=== PATIENT | female | born 1990 | race Caucasian/White ===

== ENCOUNTER 2023-06-19 14:30 | Inpatient (IN) | payer BC ==
--- NOTE | 2023-06-19 15:05 | ED ---
General Adult HPI - General Source: patient, RN notes reviewed Mode of arrival: ambulatory Limitations: no limitations <Joe Oliveira - Last Filed: 06/19/23 15:03> <Ozzy Carrasco - Last Filed: 06/19/23 17:56> - General Stated complaint: Mental health Time Seen by Provider: 06/19/23 14:45 - History of Present Illness Initial comments: 32-year-old female presents emergency department with chief complaints of needing psychiatric evaluation. Patient is concerned that she may have schizophrenia. She has a family history of schizophrenia and she states she has been hearing voices in her head that are worsening. Patient states this is making her feel very anxious, uneasy is unsure what to do. (Joe Oliveira) This 32-year-old female presents with complaint of hearing voices. She states that there is a degree of chronicity over years in this regard but it is much worse over the past couple of months. She states that it is much more severe over the last week and she states that she could not work anymore for the past week. She has chronic depression but this is unchanged recently. She denies any suicidal ideations. She complains of severe anxiety as well. She denies any history of schizophrenia or bipolar disorder. She does have a family history of schizophrenia. She also states that she takes BuSpar for her anxiety. She takes Adderall for her ADHD. She denies any current medical complaints. She denies any drugs or alcohol. She relates that she is here to seek help for her mental health condition. No other complaints or modifying factors. (Ozzy Carrasco) - Related Data Allergies Allergy/AdvReac Type Severity Reaction Status Date / Time No Known Allergies Allergy Verified 06/19/23 15:06 Review of Systems ROS Other: All systems not noted in ROS Statement are negative. <Joe Oliveira - Last Filed: 06/19/23 15:03> ROS Other: All systems not noted in ROS Statement are negative. <Ozzy Carrasco - Last Filed: 06/19/23 17:56> ROS Statement: Those systems with pertinent positive or pertinent negative responses have been documented in the HPI. General Exam <Joe Oliveira - Last Filed: 06/19/23 15:03> <Ozzy Carrasco - Last Filed: 02/15/24 17:56> - General Exam Comments Initial Comments: Visual Physical Exam Vital signs reviewed General: Well-appearing, nontoxic, no acute distress. Head: Normocephalic, atraumatic Eyes: PERRLA, EOMI ENT: Airway patent Chest: Nonlabored breathing Skin: No visual rash, normal skin tone Neuro: Alert and oriented 3 Musculoskeletal: No gross abnormalities (Joe Oliveira) GENERAL: The patient is well nourished and well hydrated. VITAL SIGNS: Heart rate, blood pressure, respiratory rate reviewed as recorded in nurse's notes. EYES: Pupils are round and reactive. Extraocular movements are intact. No conjunctival / lid redness or swelling. ENT: No external evidence of injury, swelling, or ecchymosis. Airway is patent. Throat is clear. NECK: Nontender. No swelling or evidence of injury. No subcutaneous emphysema. Trachea is midline. No thyroid mass. HEART: Regular rate and rhythm. Good peripheral pulses. LUNGS/CHEST: Breath sounds clear and equal bilaterally. No rales, rhonchi, or wheezes. No ecchymosis, subcutaneous emphysema, or tenderness. ABDOMEN: Abdomen soft without tenderness. No palpable masses or organomegaly. No peritoneal signs. No abdominal wall swelling or ecchymosis. EXTREMITIES: No extremity tenderness. Normal muscle tone and function. No thoracolumbar tenderness. NEUROLOGIC: Sensation is grossly intact. Cranial nerve exam reveals face is symmetrical, tongue is midline, speech is clear. SKIN: No abrasions or ecchymosis is noted. No induration or masses noted. PSYCHIATRIC: Alert and oriented. Appropriate behavior, no acute psychiatric distress. (Ozzy Carrasco) Course Vital Signs 06/19/23 15:00 Temperature 98 F Pulse Rate 74 Respiratory 18 Rate Blood Pressure 121/54 O2 Sat by Pulse 100 Oximetry Medical Decision Making <Joe Oliveira - Last Filed: 06/19/23 15:03> <Ozzy Carrasco - Last Filed: 06/19/23 17:56> - Medical Decision Making I completed the quick note portion of this chart signed Joe Oliveira PA-C (Joe Oliveira) The patient was seen and examined. All diagnostics were reviewed. The breath alcohol test is negative. The marijuana and amphetamine screens are positive on urine drug screen. Urine is negative. She is having auditory hallucinations. Mental health consultation was obtained and they feel as though patient would require inpatient treatment. They're examining as to whether or not her insurance will allow her to stay at our facility. If so they will admit her here. If not, they will transfer her to a different facility. Patient is in no distress on recheck. Was pt. sent in by a medical professional or institution (NEIL Alberto, RESEARCH SCIENTIST, urgent care, hospital, or senior living...) When possible be specific @ -No Did you speak to anyone other than the patient for history (EMS, parent, family, police, friend...)? What history was obtained from this source @ -No Did you review nursing and triage notes (agree or disagree)? Why? @ -I reviewed and agree with nursing and triage notes Were old charts reviewed (outside hosp., previous admission, EMS record, old EKG, old radiological studies, urgent care reports/EKG's, senior living records)? Report findings @ -No old charts were reviewed Differential Diagnosis (chest pain, altered mental status, abdominal pain women, abdominal pain men, vaginal bleeding, weakness, fever, dyspnea, syncope, headache, dizziness, GI bleed, back pain, seizure, CVA, palpatations, mental health, musculoskeletal)? @ -Psychosis, auditory hallucinations, schizophrenia, bipolar disorder, anxiety, ADHD, depression. EKG interpreted by me (3pts min.). @ -Not done X-rays interpreted by me (1pt min.). @ -None done CT interpreted by me (1pt min.). @ -None done U/S interpreted by me (1pt. min.). @ -None done What testing was considered but not performed or refused? (CT, X-rays, U/S, labs)? Why? @ -None What meds were considered but not given or refused? Why? @ -None Did you discuss the management of the patient with other professionals (professionals i.e. NEIL Alberto, RESEARCH SCIENTIST, lab, RT, psych nurse, mental health social worker, laborer cook house, teacher, chief development officer, correctional case manager)? Give summary @ -Case is discussed with the mental health professional. Was smoking cessation discussed for >3mins.? @ -No Was critical care preformed (if so, how long)? @ -No Were there social determinants of health that impacted care today? How? (Homelessness, low income, unemployed, alcoholism, drug addiction, transportation, low edu. Level, literacy, decrease access to med. care, retirement, rehab)? @ -The patient's psychiatric problems or social determinants that impacted healthcare. Was there de-escalation of care discussed even if they declined (Discuss DNR or withdrawal of care, Hospice)? DNR status @ -No What co-morbidities impacted this encounter? (DM, HTN, Smoking, COPD, CAD, Cancer, CVA, ARF, Chemo, Hep., AIDS, mental health diagnosis, sleep apnea, morbid obesity)? @ -ADHD, anxiety, depression. Was patient admitted / discharged? Hospital course, mention meds given and route, prescriptions, significant lab abnormalities, going to OR and other pertinent info. @ -Patient will be admitted to psychiatric unit or potentially transfer psychiatric unit pending insurance approval. Undiagnosed new problem with uncertain prognosis? @ -No Drug Therapy requiring intensive monitoring for toxicity (Heparin, Nitro, Insulin, Cardizem)? @ -No Were any procedures done? @ -No Diagnosis/symptom? @ -Auditory hallucinations, psychosis, marijuana abuse, anxiety, depression. Acute, or Chronic, or Acute on Chronic? @ -Acute on chronic Uncomplicated (without systemic symptoms) or Complicated (systemic symptoms)? @ -Uncomplicated Side effects of treatment? @ -No Exacerbation, Progression, or Severe Exacerbation? @ -No Poses a threat to life or bodily function? How? (Chest pain, [place], [place], pneumonia, PE, COPD, DKA, ARF, appy, cholecystitis, CVA, Diverticulitis, Homicidal, Suicidal, threat to staff... and all critical care pts) @ -No (Ozzy Carrasco) - Lab Data Lab Results 06/19/23 06/19/23 Range/Units 15:52 15:52 Urine HCG, Qual Not Detected (Not Detectd) Urine Opiates Screen Not Detected (NotDetected) Ur Oxycodone Screen Not Detected (NotDetected) Urine Methadone Screen Not Detected (NotDetected) Ur Barbiturates Screen Not Detected (NotDetected) U Tricyclic Antidepress Not Detected (NotDetected) Ur Phencyclidine Scrn Not Detected (NotDetected) Ur Amphetamines Screen Detected H (NotDetected) U Methamphetamines Scrn Not Detected (NotDetected) U Benzodiazepines Scrn Not Detected (NotDetected) Urine Cocaine Screen Not Detected (NotDetected) U Marijuana (THC) Screen Detected H (NotDetected) Disposition <Joe Oliveira - Last Filed: 06/19/23 15:03> Is patient prescribed a controlled substance at d/c from ED?: No Time of Disposition: 17:56 Decision Date: 06/19/23 Decision Time: 17:54 <Ozzy Carrasco - Last Filed: 06/19/23 17:56> Clinical Impression: Depression, Auditory hallucination, Anxiety, ADHD Disposition: ADMITTED IP TO THIS HOSP Condition: Good Referrals: None,Stated [Primary Care Provider] - 1-2 days
[2023-06-19] MEDS: ASPIRIN 81 MG PO STA (16:17)
[2023-06-19 16:43] LABS: Amphetamine Screen,Urine Detected (NotDetected); Barbiturate Screen,Urine Not Detected (NotDetected); Benzodiazepines Screen,Urine Not Detected (NotDetected); Cocaine Screen,Urine Not Detected (NotDetected); Methadone Screen, Urine Not Detected (NotDetected); Opiate Screen,Urine Not Detected (NotDetected); Oxycodone Screen, Urine Not Detected (NotDetected); Phencyclidine Screen,Urine Not Detected (NotDetected); Tricyclic Antidepressant,Urine Not Detected (NotDetected); Urn Cannabinoid Scrn Detected (NotDetected)
[2023-06-19] MEDS ORDERED: MAG HYDROX/AL HYDROX/SIMETH 30 ML CUP PO PRN (19:28)
[2023-06-19] MEDS ORDERED: MAGNESIUM HYDROXIDE 2,400 MG/30 ML CUP PO PRN (19:28)
[2023-06-19] MEDS ORDERED: LORazepam 2 MG/ML INJ IM PRN (19:34)
[2023-06-19] MEDS ORDERED: haloperidoL 5 MG TAB PO PRN (19:34)
[2023-06-19] MEDS ORDERED: HALOPERIDOL LACTATE 5 MG/ML 1 ML VIAL IM PRN (19:34)
[2023-06-19] MEDS ORDERED: LORazepam 1 MG TAB PO PRN (19:34)
[2023-06-19] MEDS: busPIRone HCl 10 MG TAB PO SCH (22:39)
[2023-06-19] MEDS: METOPROLOL TARTRATE 50 MG TAB PO SCH (22:40)
[2023-06-19] MEDS: CYCLOBENZAPRINE 10 MG TAB PO PRN (22:40)
[2023-06-20 01:22] VITALS: RESP 16; TEMP 97.9
--- NOTE | 2023-06-20 02:40 | P.CONS ---
History of Present Illness - Reason for Consult Consult date: 06/20/23 - History of Present Illness The patient is a 32-year-old female who presented to the emergency room requesting a psychiatric evaluation. She had reported auditory hallucinations. She was admitted to the mental health unit where she was seen and evaluated accompanied by a mental health unit RN. She reports a longstanding history of auditory hallucinations but reports that it had recently worsened over the past few months. She also reports chronic neck pain for the past 1 to 2 years for which she has been taking Motrin as needed. Denies any additional complaints. Denied experiencing chest discomfort, shortness of breath, fever, chills, cough, nausea, vomiting, abdominal pain, diarrhea. Denied tobacco abuse. Does admit to recreational marijuana use. Denies alcohol use. Review of systems: Pertinent positives and negatives as discussed in HPI, a complete review of systems was performed and all other systems are negative. Physical examination: General: non toxic, no distress, appears at stated age, normal weight Derm: no unusual rashes/lesions, no unusual ecchymoses, warm, dry Head: atraumatic, normocephalic, symmetric Eyes: EOMI, no lid lag, anicteric sclera ENT: Nose and ears atraumatic, no thrush, no pharyngeal erythema Neck: trachea midline, supple Mouth: no lip lesion, mucus membranes moist Cardiovascular: S1S2 reg, no murmur, no edema Lungs: CTA bilateral, no rhonchi, no rales , no accessory muscle use Abdominal: soft, nontender to palpation, no guarding Ext: no gross muscle atrophy, no contractures, Neuro: No gross focal neuro deficits noted Psych: Alert, oriented, appropriate affect Assessment: Marijuana abuse Hallucinations Imaging: None performed Data Review: Laboratory evaluation remarkable for urine toxicology positive for marijuana and amphetamines (patient takes Adderall) Plan: Advised patient on importance of cessation from marijuana use Also advised patient against chronic use of NSAIDs and advised the patient to see outpatient PT Defer management of hallucinations and possible psychosis to primary psychiatry service Thank you for allowing us to participate in the care of this patient. We will follow peripherally. Do not hesitate to contact us with questions. Someone can be reached from the [facility] hospitalist group at all hours of the day at [phone]. Past Medical History Past Medical History: Hypertension, Osteoarthritis (OA) Additional Past Medical History / Comment(s): OA in neck. Hypoglycemia History of Any Multi-Drug Resistant Organisms: None Reported Past Surgical History: No Surgical Hx Reported Smoking Status: Vaper - Past Family History Brother(s) Additional Family Medical History / Comment(s): Schizophrenia Medications and Allergies Home Medications Medication Instructions Recorded Confirmed Type Cyclobenzaprine [Flexeril] 10 mg PO HS 06/19/23 06/19/23 History Dextroamphetamine/Amphetamine 15 mg PO HS@1800 06/19/23 06/19/23 History [Adderall] Dextroamphetamine/Amphetamine 30 mg PO DAILY 06/19/23 06/19/23 History [Adderall] Ferrous Sulfate [Feosol] 325 mg PO DAILY 06/19/23 06/19/23 History Fish Oil(Unknown Dose) 1 cap PO DAILY 06/19/23 06/19/23 History Magneium(Unknown Dose) 1 tab PO DAILY 06/19/23 06/19/23 History Metoprolol Tartrate [Lopressor] 50 mg PO BID@0900,1800 06/19/23 06/19/23 History Multivitamin/Iron/Folic Acid 1 tab PO DAILY 06/19/23 06/19/23 History [Centrum Women Tablet] busPIRone HCL [Buspar] 15 mg PO HS@1800 06/19/23 06/19/23 History busPIRone HCL [Buspar] 22.5 mg PO DAILY 06/19/23 06/19/23 History Allergies Allergy/AdvReac Type Severity Reaction Status Date / Time shellfish derived Allergy Intermediate Rash/Hives Verified 06/20/23 00:56 strawberry Allergy Intermediate Rash/Hives Verified 06/20/23 00:56 Physical Exam Vitals: Vital Signs Temp Pulse Pulse Resp BP BP Pulse Ox 06/19/23 20:30 97.9 F 60 16 134/71 100 06/19/23 15:00 98 F 74 18 121/54 100 Intake and Output 06/19/23 06/19/23 06/20/23 14:59 22:59 06:59 Other: Weight 57 kg Results Labs: Abnormal Lab Results - Last 24 Hours (Table) 06/19/23 Range/Units 15:52 Ur Amphetamines Screen Detected H (NotDetected) U Marijuana (THC) Screen Detected H (NotDetected)
[2023-06-20] MEDS: NICOTINE 14MG/24HR PATCH TRANSDERM SCH (08:37)
[2023-06-20] MEDS: MULTIVITAMINS, THERA 1 EACH TAB PO SCH (08:48)
[2023-06-20] MEDS: FERROUS SULFATE 325 MG TAB PO SCH (08:48)
[2023-06-20] MEDS: ACETAMINOPHEN TAB 325 MG TAB PO PRN (08:50)
[2023-06-20] MEDS ORDERED: METOPROLOL TARTRATE 50 MG TAB PO SCH (09:00)
[2023-06-20] MEDS ORDERED: busPIRone HCl 10 MG TAB PO SCH (09:00)
--- NOTE | 2023-06-20 12:58 | P.HP ---
Psychiatric H&P - . H&P Date: 06/20/23 History & Physical: Allergies Allergy/AdvReac Type Severity Reaction Status Date / Time shellfish derived Allergy Intermediate Rash/Hives Verified 06/20/23 00:56 strawberry Allergy Intermediate Rash/Hives Verified 06/20/23 00:56 Vital Signs Temp 97.9 F 06/19/23 20:30 Pulse 60 06/19/23 20:30 Resp 16 06/19/23 20:30 BP 134/71 06/19/23 20:30 Pulse Ox 100 06/19/23 20:30 FiO2 Intake & Output 06/19/23 06/20/23 06/20/23 18:59 06:59 18:59 Weight 56.699 kg 57 kg Laboratory Last Values Urine HCG, Qual Not Detected (Not Detectd) 06/19/23 15:52 Urine Opiates Screen Not Detected (NotDetected) 06/19/23 15:52 Ur Oxycodone Screen Not Detected (NotDetected) 06/19/23 15:52 Urine Methadone Screen Not Detected (NotDetected) 06/19/23 15:52 Ur Barbiturates Screen Not Detected (NotDetected) 06/19/23 15:52 U Tricyclic Antidepress Not Detected (NotDetected) 06/19/23 15:52 Ur Phencyclidine Scrn Not Detected (NotDetected) 06/19/23 15:52 Ur Amphetamines Screen Detected (NotDetected) H 06/19/23 15:52 U Methamphetamines Scrn Not Detected (NotDetected) 06/19/23 15:52 U Benzodiazepines Scrn Not Detected (NotDetected) 06/19/23 15:52 Urine Cocaine Screen Not Detected (NotDetected) 06/19/23 15:52 U Marijuana (THC) Screen Detected (NotDetected) H 06/19/23 15:52 SARS-CoV-2 (PCR) Not Detected (Not Detectd) 06/19/23 17:42 06/20/23 08:48 IDENTIFYING DATA: Patient is a 32 year old female. , has one daughter. Lives in a house with her and daughter. Works as a delivery director. HPI: Patient presented to the hospital on 06/19. As per EPS note, "Upon assessment pt is slightly anxious but cooperative. Pt has good hygiene and speaks appropriately. Pt has not had any inpatient or outpatient treatment. Pt brought self to ER d/t increased hallucinations. Pt states it began about 3 months ago and she was hearing voices that were muffled. She states in the last 3 weeks they have intensified and she can hear people talking clearly. She states she hears family, friends, her daughters voice. Hallucinations are not command in nature. She states they are just talking about day to day. Occasionally she states they talk about her. She is also paranoid, she believes that her is having an affair per some of the voices. She states that she believes people are watching her and that their are cameras in her house. She admits to VH of shadows going by occasionally. She denies having any supports and feels like people will label her crazy if she talks about it to anyone. She tries to speak with her but shuts her down and is not supportive per pt. Pt denies current SI, but states that she had SI a few days ago. No plan or intent. She states, "I have my daughter and I would never abandon her, that is selfish". Pt came to ER because her hallucinations are starting to affect her work life, she feels a decrease in motivation and willingness to work. She has a decrease in sleep in the last 3 months, from 8 hours before to now only about 3 on average. A decrease in appetite, but feels it's related to constantly worki ng. Pt is caring for her ADLs. Pt states, "I know I need help". Pt is willing to sign herself in for treatment." Upon todays assessment, states the voices were subtle at first, and if she focused, she could understand what they were saying. States that they are generally "a conversation between two or more people. Just hearing negative stuff about her, that she is "ugly, dumb, we can't be her frie nd" States that it might be paranormal things, or schizophrenia, (with a laugh). She is currently not having thoughts of hurting herself or anyone else. States that she does have mood swings, and is quick to get angry. Patient states that she does not get much sleep, and she does not have "normal" eating habits. Patient denies any suicidal or homicidal ideations intent or plan. At this time patient denies any auditory or visual hallucinations. Patient denies any flight of ideas racing thoughts and increased in goal directed behavior. Endorses mild paranoia. Patient admits to using marijuana. Uses a nicotine vape, and rarely drinks. Patients UDS positive for amphetamines and marijuana. PAST PSYCHIATRIC HISTORY: Patient states that she has never been admitted to a psych facility. No outpatient follow up, No psych medications. Admits to 1 suicide attempt by hanging at age 23. PMH:As per ER note ALLERGIES: as per EMR CHEMICAL DEPENDENCY HISTORY: as per HPI FAMILY PSYCHIATRIC/SUBSTANCE USE HISTORY: brother schizophrenic, mother bipolar/depressed SOCIAL HISTORY: Patient was born and raised in [place]. Moved to [place] in 2000. High school graduate, 1 child, , lives in a house with her and child. Works as a delivery director. Denies legal troubles. MENTAL STATUS EXAM: General Appearance: Patient appears to be stated age is alert, directable, and attempts to cooperate. Patient appears to have good hygiene and grooming. Tall and thin, wearing street clothes. Has glasses. Multiple tattoos and piercings Behavior: Patient is seated without any agitated behavior. cooperative Speech: Patient's speech is fluent and nonpressured. Very animated. Mood/Affect: Patient reports their mood is depressed, affect is congruent and constricted. Suicidality/Homicidality: Patient denies having any homicidal ideation intent or plan. Denies any suicidal ideations intent or plan Perceptions: Patient denies any visual hallucinations and denies any auditory hallucinations Though content/process: There is no evidence of any delusional thought content and thought process is linear and goal-directed. focused on adderal Memory and concentration: AOX3, grossly intact for the purposes of this session. Can spell "WORLD" backwards Judgment and insight: poor STRENGTHS/WEAKNESSES: strength is that patient is resilient. Weakness is that patient has poor judgment and is impulsive INTELLECT: average IMPRESSIONS: psychosis, unspecified r/o substance induced vs organic/general medical condition vs schizophrenia hx of ADHD nicotine dependance cannabis use disorder PLAN: -Patient is admitted under voluntary status to MHU for stabilization of psychiatric symptoms and safety. Patient has signed adult voluntary form and medication consent and is placed in patient's chart. -Will order a CT Scan to r/o lesions or organic causes. Also test for Syphilis -Medications : Will start patient on abilify 5mg qd for mood stabilization/psychosis trazadone 50mg qhs prn for sleep -WILL HOLD ADDERAL WHILE PATIENT ON UNIT -Ativan and Haldol PRN for agitation/aggression -Patient was counselled on substance abuse and desired to cut back on use -Patient was informed of the risks, benefits and side effects of the medication and patient verbally consented to taking the medications. -Internal Medicine consult to perform medical evaluation and physical. -NRT - nicotine patch -SW on board for discharge planning. Encourage patient to participate in groups to work on coping skills.
[2023-06-20] MEDS: ARIPiprazole 5 MG TAB PO SCH (13:08)
[2023-06-20 13:56] LABS: Appearance,Urine Clear (Clear); Bilirubin,Urine Negative (Negative); Blood,Urine Negative (Negative); Color,Urine Colorless; Glucose,Urine (UA) Negative (Negative); Ketones,Urine Negative (Negative); Leukocyte Esterase,Urine Negative (Negative); Nitrite,Urine Negative (Negative); PH, Urine 6.5 (5.0-8.0); Protein,Urine Negative (Negative); Specific Gravity,Urine 1.009 (1.001-1.035); Urobilinogen,Urine <2.0 mg/dL (<2.0)
--- NOTE | 2023-06-20 14:21 | CT ---
EXAMINATION TYPE: CT brain wo con DATE OF EXAM: 06/20/2023 COMPARISON: None available. HISTORY: Altered mental status. CT DLP: 1156 mGycm. Automated Exposure Control for Dose Reduction was Utilized. TECHNIQUE: CT scan of the head is performed without contrast. FINDINGS: There is no acute intracranial hemorrhage, mass effect, or midline shift identified. The ventricles and sulci are within normal limits in size. The globes are intact and the visualized sin uses are clear. IMPRESSION: No acute intracranial hemorrhage, mass effect, or midline shift is seen.
[2023-06-20] MEDS: traZODone HCL 50 MG TAB PO SCH (22:03)
[2023-06-21] MEDS: traZODone HCL 100 MG TAB PO PRN (21:45)
--- NOTE | 2023-06-21 22:54 | P.PN ---
Progress Note - Text Progress Note Date: 06/21/23 Interval History: The patient was seen today as coverage for Dr. Durand. Their chart was reviewed, and the case was discussed with the nursing staff. The patient reports poor sleep, but fair appetite. The patient has not been participating in groups and other unit activities today. The patient has been taking their psychiatric medications and denies side effects. The patient reports feeling more stable mentally and denies suicidal or homicidal ideation. There are no reports of delusions, manic symptoms, or hallucinations. Patient reports feeling tired today because not sleeping well. MENTAL STATUS EXAM: General Appearance: Patient appears to be stated age is alert,thin, wearing str eet clothes, and has multiple tattoos and piercing Attitude: Cooperative, normal psychomotor activity. Speech: Patient's speech is fluent and non pressured. Mood/Affect: Patient reports their mood is depressed, affect is congruent and constricted. Suicidal/Homicidal ideation: Patient denies having any homicidal ideation intent or plan. Denies any suicidal ideation intent or plan Perceptions: Patient denies any visual hallucinations and denies any auditory hallucinations Though content/process: There is no evidence of any delusional thought content and thought process is linear and goal-directed. Memory and concentration: AOX3, grossly intact for the purposes of this session. Judgment and insight: poor IMPRESSIONS: Psychosis, unspecified Rule out Cannabis induced psychosis vs Schizophrenia History of ADHD Nicotine dependance Cannabis use disorder PLAN: -Patient is admitted under voluntary status to MHU for stabilization of psychiatric symptoms and safety. Patient has signed adult voluntary form and medication consent and is placed in patient's chart. Continue inpatient psychiatric hospitalization. Implement the following precautions as recommended by the admitting psyc hiatrist: elopement and suicide precautions. Consult the medical team immediately if any medical concerns arise. Educate the patient on the benefits of participating in groups and other unit activities and encourage active participation. Patient completed CT brain report reviewed and was no intra-cranial lesions. No lab results for syphilis available Medications: Continue Abilify 5mg qd for mood stabilization/psychosis Increase Trazadone 100 mg qhs prn for sleep NRT Continue PRN psychiatric Medications including Ativan and Haldol PRN for agitation/aggression Continue HOLD ADDERAL WHILE PATIENT ON UNIT Patient was educated about Substance use and risk of continuing using marijuana and higher doses of Adderall. Discharge planning is currently in progress.
[2023-06-22] MEDS: traZODone HCL 50 MG TAB PO PRN (21:03)
[2023-06-23] MEDS: ARIPiprazole 5 MG TAB PO ONE (11:42)
--- NOTE | 2023-06-23 11:42 | P.PN ---
Progress Note - Text Progress Note Date: 06/23/23 Interval History: Patient was seen in group and was directable and agreeable to speak with adjusto writer operator in the office. Patient states that she is feeling much better today. Patient claims that she is no longer hearing voices, and she feels that it is contributed to not smoking marijuana, or taking adderral. Patient claims that the trazadone has a reverse effect on her, and that it keeps her awake, instead of helping her sleep. Non Destructive Testing Supervisor spoke with patient about different medication options, patient agreeable. At this time patient denies any suicidal or homicidal ideations, intent or plan. Patient denies any auditory, visual hallucinations and denies any paranoia or delusions. Patient denies any side effects from the medications and has been compliant with meds. MENTAL STATUS EXAM: General Appearance: Patient appears to be stated age is alert, directable, and attempts to cooperate. Patient appears to have good hygiene and grooming. Tall and thin, wearing street clothes. Has glasses. Multiple tattoos and piercings Behavior: Patient is seated without any agitated behavior. cooperative Speech: Patient's speech is fluent and nonpressured. Mood/Affect: Patient reports their mood is much better, affect is congruent and constricted. improving Suicidality/Homicidality: Patient denies having any homicidal ideation intent or plan. Denies any suicidal ideations intent or plan Perceptions: Patient denies any visual hallucinations and denies any auditory hallucinations Though content/process: There is no evidence of any delusional thought content and thought process is linear and goal-directed. Memory and concentration: AOX3, grossly intact for the purposes of this session. Judgment and insight: improving IMPRESSIONS: psychosis, unspecified r/o substance induced vs organic/general medical condition vs schizophrenia hx of ADHD nicotine dependance cannabis use disorder PLAN: -Patient is admitted under voluntary status to [facility] for stabilization of psychiatric symptoms and safety. Patient has signed adult voluntary form and medication consent and is placed in patient's chart. -Medications : increase abilify 7.5mg qd for mood stabilization/psychosis discontinue trazadone, replace with Remeron 15mg qhs for sleep -WILL HOLD ADDERAL WHILE PATIENT ON UNIT -Ativan and Haldol PRN for agitation/aggression -NRT - nicotine patch -SW on board for discharge planning. Encourage patient to participate in groups to work on coping skills. Likely discharge tomorrow if patient continues to improve.
--- NOTE | 2023-06-23 11:46 | P.PN ---
Progress Note - Text Progress Note Date: 06/22/23 Interval History: The patient was seen today as coverage for Dr. Durand. Their chart was reviewed, and the case was discussed with the nursing staff. The patient reported feeling improvement in her mood that she feels less depressed and more motivated. She endorses still having trouble falling asleep and trazodone 100 mg didn't help her last night. The patient has been socializing more and reported her anxiety is better controlled. The patient denied hallucinations, paranoid ideation, delusions, or manic symptoms. No reports of signed out or homicidal ideation. The patient indicated that she takes her psych medications and denied side effects. We discussed to increase trazodone 150 mg aiming to help with insomnia. MENTAL STATUS EXAM: General Appearance: Patient appears to be stated age is alert,thin, wearing street clothes, and has multiple tattoos and piercing Attitude: Cooperative, normal psychomotor activity. Speech: Patient's speech is fluent and non pressured. Mood/Affect: Patient reports their mood is "better", affect is congruent and constricted. Suicidal/Homicidal ideation: Patient denies having any homicidal ideation intent or plan. Denies any suicidal ideation intent or plan Perceptions: Patient denies any visual hallucinations and denies any auditory hallucinations Though content/process: There is no evidence of any delusional thought content and thought process is linear and goal-directed. Memory and concentration: AOX3, grossly intact for the purposes of this session. Judgment and insight: Improving IMPRESSIONS: Psychosis, unspecified Rule out Cannabis induced psychosis vs Schizophrenia History of ADHD Nicotine dependance Cannabis use disorder PLAN: -Patient is admitted under voluntary status to [facility] for stabilization of psychiatric symptoms and safety. Patient has signed adult voluntary form and medication consent and is placed in patient's chart. Continue inpatient psychiatric hospitalization. Implement the following precautions as recommended by the admitting psychiatrist: elopement and suicide precautions. Consult the medical team immediately if any medical concerns arise. Educate the patient on the benefits of participating in groups and other unit activities and encourage active participation. Patient completed CT brain report reviewed and was no intra-cranial lesions. No lab results for syphilis available Medications: Continue Abilify 5mg qd for mood stabilization/psychosis Increase Trazadone 150 mg qhs prn for sleep- (the patient get help from 100 mg dose with insomnia) NRT Continue PRN psychiatric Medications including Ativan and Haldol PRN for agitation/aggression Continue HOLD ADDERAL WHILE PATIENT ON UNIT Patient was educated about Substance use and risk of continuing using marijuana and higher doses of Adderall. Discharge planning is currently in progress.
[2023-06-23] MEDS: busPIRone HCl 10 MG TAB PO SCH (17:36)
[2023-06-23] MEDS: MIRTAZAPINE 15 MG TAB PO SCH (20:38)
[2023-06-24] MEDS: ARIPiprazole 5 MG TAB PO SCH (08:06)
[2023-06-24 08:33] VITALS: BP 127/72; PULSE 89
--- NOTE | 2023-06-24 11:02 | P.DS ---
Providers Date of admission: 06/19/23 19:19 Expected date of discharge: 06/24/23 Attending physician: Fabian Durand MD Consults: 06/19/23 19:28 Consult Physician Routine Consulting Provider: Joselin Physician Consult Reason/Comments: H&P Do you want consulting provider notified?: Yes Primary care physician: Stated None - Discharge Diagnosis(es) (1) Unspecified psychosis Current Visit: Yes Status: Acute Priority: High (2) History of ADHD Current Visit: Yes Status: Acute Priority: Medium (3) Nicotine dependence Current Visit: Yes Status: Acute Priority: Low (4) Cannabis use disorder Current Visit: Yes Status: Acute Priority: High Hospital Course: Admission HPI: Admission note was completed by travel writer "Patient presented to the hospital on 06/19. As per EPS note, "Upon assessment pt is slightly anxious but cooperative. Pt has good hygiene and speaks appropriately. Pt has not had any inpatient or outpatient treatment. Pt brought self to ER d/t increased hallucinations. Pt states it began about 3 months ago and she was hearing voices that were muffled. She states in the last 3 weeks they have intensified and she can hear people talking clearly. She states she hears family, friends, her daughters voice. Hallucinations are not command in nature. She states they are just talking about day to day. Occasionally she states they talk about her. She is also paranoid, she believes that her is having an affair per some of the voices. She states that she believes people are watching her and that their are cameras in her house. She admits to of shadows going by occasionally. She denies having any supports and feels like people will label her crazy if she talks about it to anyone. She tries to speak with her but shuts her down and is not supportive per pt. Pt denies current SI, but states that she had SI a few days ago. No plan or intent. She states, "I have my daughter and I would never abandon her, that is selfish". Pt came to ER because her hallucinations are starting to affect her work life, she feels a decrease in motivation and willingness to work. She has a decrease in sleep in the last 3 months, from 8 hours before to now only about 3 on average. A decrease in appetite, but feels it's related to constantly working. Pt is caring for her ADLs. Pt states, "I know I need help". Pt is willing to sign herself in for treatment." Upon todays assessment, states the voices were subtle at first, and if she focused, she could understand what they were saying. States that they are generally "a conversation between two or more people. Just hearing negative stuff about her, that she is "ugly, dumb, we can't be her friend" States that it might be paranormal things, or schizophrenia, (with a laugh). She is currently not having thoughts of hurting herself or anyone else. States that she does have mood swings, and is quick to get angry. Patient states that she does not get much sleep, and she does not have "normal" eating habits. Patient denies any suicidal or homicidal ideations intent or plan. At this time patient denies any auditory or visual hallucinations. Patient denies any flight of ideas racing thoughts and increased in goal directed behavior. Endorses mild paranoia. Patient admits to using marijuana. Uses a nicotine vape, and rarely drinks. Patients UDS positive for amphetamines and marijuana." Hospital course: Upon admission to the unit patient was directable and agreeable to commence treatment and signed adult voluntary form. Patient got along well with other patients on the unit and followed unit protocol. Patient was compliant with the medications and denied any side effects throughout hospital course. Patient was started on Abilify and increased to a dose of 7.5 mg daily for mood stabilization/psychosis/hallucinations, Remeron 15 mg nightly for insomnia/mood, patient was resumed back on her home dose of BuSpar 30 mg twice daily for anxiety. Patient spoke of her stressors and engaged in therapy both group and individual. Patient was also seen by medical team for history and physical exam. Throughout the course of the hospitalization patient gradually improved with regards to mood, anxiety, hallucinations, paranoia, sleep and became more future oriented with improved insight and judgment. On the day of discharge patient denied any suicidal or homicidal ideations intent or plan denied any auditory or visual hallucinations. Patient endorsed wanting to live for her health and her family. The patient denied any access to guns or weapons. Patient denied any paranoia and did not endorse any delusions. Patient does have a significant history of substance abuse and was counseled on abstaining from all substances including alcohol and marijuana. Patient elected to do outpatient substance use treatment program through her outpatient provider. Patient was also counseled on the medications and need for regular compliance and was encouraged to follow-up with their outpatient appointment for mental health and also for primary care. Prior to discharge a family meeting will be arranged by social work instructor to answer any questions and ensure safety upon discharge. Mental status exam: General Appearance: Patient appears to be thin, several tattoos, wearing glasses, stated age is alert, pleasant, and cooperative. Patient is in no acute distress and has improved hygiene and grooming Behavior: Patient is calmly seated without any agitated behavior. Speech: Patient's speech is fluent and nonpressured. Mood/Affect: Patient reports their mood is "better", affect is congruent and eu thymic. Suicidality/Homicidality: Patient denies having any suicidal or homicidal ideation intent or plan. Perceptions: Patient denies any auditory or visual hallucinations. Though content/process: There is no evidence of any delusional thought content and thought process is linear and goal-directed. More future oriented Memory and concentration: AOX3, grossly intact for the purposes of this session. Can spell "WORLD" backwards correctly. Judgment and insight: improved with guarded prognosis Impression: psychosis, unspecified r/o substance induced vs schizophrenia hx of ADHD nicotine dependance cannabis use disorder Plan: -Continue with discharge today as patient has improved and stabilized psychiatrically and is not currently an imminent threat to herself and/or others. -Continue medications: Abilify p.o. 7.5 mg daily for mood stabilization/psychosis, Remeron 15 mg nightly for mood/insomnia. BuSpar 30 mg twice daily for anxiety. Patient's Adderall can be resumed however at very low dose, was suggested either 10 to 15 mg daily for ADHD however not to go much higher than this due to it possibly precipitating psychotic symptoms. Spoke with patient in detail about the risks of cannabis use and the potential adverse effects on her mental health, patient verbally understood and agreed. -Patient was counseled on the need for medication compliance and appropriate follow-up at mental health and also primary care for medical issues. Patient verbalized understanding and agreed. -Social work to arrange for and conduct family meeting to ensure safety upon discharge and answer any questions/concerns. Social work also to arrange for patients follow up appointments for psychiatric care along with follow up with primary care provider. -Patient counseled on abstaining from recreational drugs and marijuana and alcohol. Was informed/educated on the adverse effects on their physical and mental health. Patient verbally agreed and understood. -Patient was instructed to return to the hospital or seek immediate medical care if their psychiatric or medical symptoms do worsen or reoccur. Allergies Allergy/AdvReac Type Severity Reaction Status Date / Time shellfish derived Allergy Intermediate Rash/Hives Verified 06/20/23 00:56 strawberry Allergy Intermediate Rash/Hives Verified 06/20/23 00:56 Laboratory Results Urine Color Colorless 06/19/23 15:52 Urine Appearance Clear (Clear) 06/19/23 15:52 Urine pH 6.5 (5.0-8.0) 06/19/23 15:52 Ur Specific Richardson 1.009 (1.001-1.035) 06/19/23 15:52 Urine Protein Negative (Negative) 06/19/23 15:52 Urine Glucose (UA) Negative (Negative) 06/19/23 15:52 Urine Ketones Negative (Negative) 06/19/23 15:52 Urine Blood Negative (Negative) 06/19/23 15:52 Urine Nitrite Negative (Negative) 06/19/23 15:52 Urine Bilirubin Negative (Negative) 06/19/23 15:52 Urine Urobilinogen <2.0 mg/dL (<2.0) 06/19/23 15:52 Ur Leukocyte Esterase Negative (Negative) 06/19/23 15:52 Urine HCG, Qual Not Detected (Not Detectd) 06/19/23 15:52 Urine Opiates Screen Not Detected (NotDetected) 06/19/23 15:52 Ur Oxycodone Screen Not Detected (NotDetected) 06/19/23 15:52 Urine Methadone Screen Not Detected (NotDetected) 06/19/23 15:52 Ur Barbiturates Screen Not Detected (NotDetected) 06/19/23 15:52 U Tricyclic Antidepress Not Detected (NotDetected) 06/19/23 15:52 Ur Phencyclidine Scrn Not Detected (NotDetected) 06/19/23 15:52 Ur Amphetamines Screen Detected (NotDetected) H 06/19/23 15:52 U Methamphetamines Scrn Not Detected (NotDetected) 06/19/23 15:52 U Benzodiazepines Scrn Not Detected (NotDetected) 06/19/23 15:52 Urine Cocaine Screen Not Detected (NotDetected) 06/19/23 15:52 U Marijuana (THC) Screen Detected (NotDetected) H 06/19/23 15:52 Treponema pallidum Ab Nonreactive 06/20/23 13:26 SARS-CoV-2 (PCR) Not Detected (Not Detectd) 06/19/23 17:42 Vital Signs Temp 97.9 F 06/19/23 20:30 Pulse 89 06/24/23 08:11 Resp 16 06/23/23 08:26 BP 127/72 06/24/23 08:11 Pulse Ox 98 06/23/23 08:26 FiO2 Patient Condition at Discharge: Stable Plan - Discharge Summary Discharge Rx Participant: Yes New Discharge Prescriptions: New ARIPiprazole [Abilify] 7.5 mg PO DAILY 30 Days #45 tab busPIRone HCl [Buspar] 30 mg PO 0900,1800 tab Nicotine 14Mg/24Hr Patch [Habitrol] 1 patch TRANSDERM DAILY 14 Days #14 patch Mirtazapine [Remeron] 15 mg PO HS 30 Days #30 tab Acetaminophen Tab [Tylenol] 650 mg PO Q4HR PRN tab PRN Reason: Mild Pain (Scale 1 To 3) Continue Metoprolol Tartrate [Lopressor] 50 mg PO BID@0900,1800 Magneium(Unknown Dose) 1 tab PO DAILY Ferrous Sulfate [Iron (65 MG Elemental)] 325 mg PO DAILY Multivitamin/Iron/Folic Acid [Centrum Women Tablet] 1 tab PO DAILY Fish Oil(Unknown Dose) 1 cap PO DAILY Cyclobenzaprine [Flexeril] 10 mg PO HS Discontinued Dextroamphetamine/Amphetamine [Adderall] 15 mg PO HS@1800 busPIRone HCL [Buspar] 15 mg PO HS@1800 Dextroamphetamine/Amphetamine [Adderall] 30 mg PO DAILY busPIRone HCL [Buspar] 22.5 mg PO DAILY Discharge Medication List Cyclobenzaprine [Flexeril] 10 mg PO HS 06/19/23 [History] Ferrous Sulfate [Iron (65 MG Elemental)] 325 mg PO DAILY 06/19/23 [History] Fish Oil(Unknown Dose) 1 cap PO DAILY 06/19/23 [History] Magneium(Unknown Dose) 1 tab PO DAILY 06/19/23 [History] Metoprolol Tartrate [Lopressor] 50 mg PO BID@0900,1800 06/19/23 [History] Multivitamin/Iron/Folic Acid [Centrum Women Tablet] 1 tab PO DAILY 06/19/23 [History] ARIPiprazole [Abilify] 7.5 mg PO DAILY 30 Days #45 tab 06/24/23 [Rx] Acetaminophen Tab [Tylenol] 650 mg PO Q4HR PRN tab 06/24/23 [Rx] Mirtazapine [Remeron] 15 mg PO HS 30 Days #30 tab 06/24/23 [Rx] Nicotine 14Mg/24Hr Patch [Habitrol] 1 patch TRANSDERM DAILY 14 Days #14 patch 06/24/23 [Rx] busPIRone HCl [Buspar] 30 mg PO 0900,1800 tab 06/24/23 [Rx] Follow up Appointment(s)/Referral(s): None,Stated [Primary Care Provider] - 1-2 days Activity/Diet/Wound Care/Special Instructions: Avoid the use of street drugs and alcohol. Take all medications as prescribed. When you are in need of refills on your medications, please contact your medical provider and/or outpatient psychiatrist/provider to have this done. Please go to your scheduled outpatient appointment for aftercare treatment. If symptoms return or become worse, call the crisis line at and/or go to the nearest emergency room for evaluation. National Suicide Hotline 988. Discharge Disposition: HOME SELF-CARE
== END 2023-06-24 13:35 | disposition home or self-care (01) | DRG 885 ==
LOC: EC 14:30 → 3MHU 19:19
PROVIDERS: ADMIT Psychiatry & Neurology Psychiatry; ATTEND Psychiatry & Neurology Psychiatry
DX: F29 Unspecified psychosis not due to a substance or known physiological condition (principal); F32.A Depression, unspecified; F41.9 Anxiety disorder, unspecified; F90.9 Attention-deficit hyperactivity disorder, unspecified type; F17.290 Nicotine dependence, other tobacco product, uncomplicated; F12.10 Cannabis abuse, uncomplicated; I10 Essential (primary) hypertension; G89.29 Other chronic pain; G47.00 Insomnia, unspecified; M19.09 Primary osteoarthritis, other specified site; Z11.52 Encounter for screening for COVID-19; Z91.51 Personal history of suicidal behavior; Z79.899 Other long term (current) drug therapy
CPT/HCPCS: 70450; 80306; 81003; 81025; 82075; 86780; 87635; 99285